=== PATIENT | female | born 1990 | race African-American/Black ===

== ENCOUNTER 2017-06-20 23:21 | Inpatient (IN) | payer OTHER ==
[~2017-06-20] VITALS: Ht 162.6 cm; Wt 140.3 kg
--- NOTE | ~2017-06-20 | HC ---
[facility] [place] [address] CONSULTATION Name: KRISSY KNOTT Room #: 359-P [facility] IN M.R.#: [id number] Admission: 06/21/17 Attend Phys: Justin Emanuel MD Discharge: Date of : 88 Report #: [id number] THIS REPORT FOR: //name// CC: Epi RICHARD physician/PCP Balta Grady DATE OF SERVICE: 06/21/2017 PULMONARY CONSULTATION DATE OF SERVICE: 06/21/2017 REFERRING PHYSICIAN: Dr. Grady. REASON FOR REFERRAL: Pulmonary embolus. HISTORY OF PRESENT ILLNESS: The patient is a 27-year-old -[place] female who presents to the Emergency Room with chest pain and abdominal pain. She was subsequently found to have pulmonary embolus. A pulmonary consultation was requested. The patient states that she was in her usual state of health until about a week ago, when she started to develop episodic chest pain. Symptoms progressively worsened earlier today when she presented to the Emergency Room. CT chest angiogram was performed. This revealed moderate bilateral pulmonary embolus, more in the left lower lung field than the right. There appears to be mild wedge-shaped infiltrates involving the left lower lobe. The patient also knows that her brother and father were diagnosed with pulmonary embolus. Otherwise, she has been relatively healthy. PAST MEDICAL HISTORY: Remarkable for mild anxiety. PAST SURGICAL HISTORY: Negative. ALLERGIES: NSAIDs which causes swelling involving the lips and also hives. HOME MEDICATIONS: Alprazolam p.r.n. FAMILY HISTORY: Father was diagnosed with pulmonary embolus, a brother with DVT following an injury. SOCIAL HISTORY: She is a lifetime nonsmoker. Denies any alcohol use. She is with 1 child. REVIEW OF SYSTEMS: As mentioned above, it is notable for morbid obesity. She stands 5 feet 4 inches tall and weighs a little over 300 pounds. Otherwise, [facility] [address] [place] [address] CONSULTATION Name: KRISSY KNOTT Room #: 359-P [facility] IN [facility]#: [id number] Admission: 06/21/17 Attend Phys: Justin Emanuel MD Discharge: Date of : 88 Report #: [id number] 10-point system review negative. PHYSICAL EXAMINATION: GENERAL: She is awake, alert, in no distress. VITAL SIGNS: Temperature maximum is 101.2 degrees Fahrenheit, pulse is 75, respiratory rate is 20, blood pressure 133/82 mmHg, saturation 97%. HEENT: Normocephalic, atraumatic. NECK: Supple, without any lymphadenopathy or thyromegaly. CHEST: Breath sounds are clear bilaterally without any rales or wheezes. CARDIOVASCULAR: Normal S1, S2. There are no murmurs or gallop. There is no JVD. There is no carotid bruit. Pulses are 2+/4+ bilaterally. ABDOMEN: Soft, nontender, no organomegaly or masses felt. GENITOURINARY AND RECTAL: Deferred. EXTREMITIES: There is no edema, cyanosis or clubbing. LABORATORY DATA: CT chest angiogram as mentioned above. hCG was negative. D-dimer was 4.2, CT abdomen and pelvis was unremarkable, venous leg Doppler ultrasound shows no evidence of DVT. Sodium 135, potassium 4.0, chloride 103, CO2 of 27, BUN is 10, creatinine 0.9. Liver function enzymes are unremarkable. Albumin is 3.2. IMPRESSION: 1. Pulmonary embolus in this 27-year-old -[place] female. CT chest angiogram shows moderate pulmonary emboli involving the left lower lobe with what appears to be pulmonary infarction. She does not have any risk factors. This is felt to be unprovoked. She has a family history of venous thromboembolic disease involving her father and a brother. Hereditary hypocoagulable state is suggested. 2. Morbid obesity. 3. Pulmonary infarction, left lower lobe. RECOMMENDATION: Agree with heparin. Would leave the patient on heparin for 1 or 2 days to assess whether there is any bleeding complication particularly her pulmonary infarction. If no bleeding complication is noted, could consider oral anticoagulant, either Coumadin. Among the direct oral anticoagulants, I would recommend Pradaxa given it has a reversal agent. In terms of duration of therapy, given this is an unprovoked event along with family history of hypocoagulable state, the patient will be a candidate for indefinite anticoagulation. Hypocoagulable panel was recommended. We also discussed the importance of dietary and exercise program to achieve an ideal body weight. [address] [address] CONSULTATION Name: KRISSY KNOTT Baljit Room #: 359-P [facility] IN M.R.#: [id number] Admission: 06/21/17 Attend Phys: Justin Emanuel MD Discharge: Date of : 88 Report #: [id number] Thank you for this consultation. <ELECTRONICALLY SIGNED> By: Favian Lucio MD 06/22/17 1920 1531 1629 Favian Lucio MD /nt
--- NOTE | ~2017-06-20 | 2DMMODE ---
[facility] [address] [place] [address] 2 D/M-MODE ECHOCARDIOGRAM Name: KRISSY KNOTT Room #: 359-P [facility] IN ..#: [id number] Admission: 06/21/17 Attend Phys: Dennis Dial Discharge: Date of : 88 Date of Service: 06/22/17 1151 Report #: [id number] THIS REPORT FOR: //name// APPROVED REPORT Study performed: 06/22/2017 09:50:29 EXAM: Comprehensive 2D, Doppler, and color-flow Echocardiogram Patient Location: Bedside Room #: 359 Status: routine BSA: 2.35 BP: 117/74 mmHg Other Information Study Quality: Good 2D Dimensions RVDd: 34.70 mm LVEF(%): 66.45 (>50%) IVSd: 12.57 (7-11mm) LVOT Diam: 21.68 (18-24mm) LVDd: 48.42 mm PWd: 13.42 (7-11mm) Ascending Ao: 28.83 (22-36mm) LVDs: 30.62 (25-40mm) Aortic Root: 28.51 mm IVC: 23.00 mm Henriquez's LVEF: 66.45 % Volumes Left Atrial Volume (Systole) Single Plane 4CH: 70.37 mL Single Plane 2CH: 47.03 mL LA ESV Index: 28.00 mL/m2 Aortic Valve AoV Peak Benjamin.: 1.79 m/s AO Peak Gr.: 12.87 mmHg LVOT Max P.61 mmHg LVOT Max V: 0.95 m/s ADOLFO Vmax: 1.95 cm2 Mitral Valve E/A Ratio: 1.8 MV Decel. Time: 236.79 ms MV E Max Benjamin.: 1.02 m/s MV A Benjamin.: 0.57 m/s MV PHT: 68.67 ms IVRT: 107.27 ms [facility] [place] [address] 2 D/M-MODE ECHOCARDIOGRAM Name: KNOTTKRISSY Room #: 359-P [facility] IN [facility]#: [id number] Admission: 06/21/17 Attend Phys: Dennis Dial Discharge: Date of : 88 Date of Service: 06/22/17 1151 Report #: [id number] Pulmonary Valve PV Peak Benjamin.: 1.26 m/s PV Peak Gr.: 6.38 mmHg Pulmonary Vein P Vein S: 0.93 m/s P Vein A: 0.24 m/s P Vein D: 0.47 m/s P Vein A Dur.: 86.5 msec P Vein S/D Ratio: 1.98 Tricuspid Valve RAP Estimate: 10.00 mmHg Left Ventricle The left ventricle is normal size. Mild concentric left ventricular hypertrophy. The left ventricular systolic function is normal. The left ventricular ejection fraction is within the normal range. LVEF is 60-65%. The left ventricular diastolic function is normal. Right Ventricle Right ventricle is at the upper limits of normal. The right ventricular systolic function is normal. Atria The left atrium size is normal. Right atrium is at the upper limits of normal. Aortic Valve The aortic valve is normal in structure. No aortic regurgitation is present. There is no aortic valvular stenosis. Mitral Valve The mitral valve is normal in structure. There is no mitral valve regurgitation noted. No evidence of mitral valve stenosis. Tricuspid Valve The tricuspid valve is normal in structure. Trace tricuspid regurgitation. Unable to assess PA pressure. Pulmonic Valve The pulmonary valve is normal in structure. Trace to mild pulmonic regurgitation. Great Vessels The aortic root is normal in size. IVC is dilated and collapses >50% with inspiration. [facility] [address] [place] [address] 2 D/M-MODE ECHOCARDIOGRAM Name: KRISSY KNOTT Room #: 359-P [facility] IN [facility]#: [id number] Admission: 06/21/17 Attend Phys: Dennis Dial Discharge: Date of : 88 Date of Service: 06/22/17 1151 Report #: [id number] Pericardium There is no pericardial effusion. <Conclusion> The left ventricle is normal size. LVEF is 60-65%. Right ventricle is at the upper limits of normal. The aortic valve is normal in structure. The mitral valve is normal in structure. The tricuspid valve is normal in structure. Trace tricuspid regurgitation. Unable to assess PA pressure. The pulmonary valve is normal in structure. Trace to mild pulmonic regurgitation. <ELECTRONICALLY SIGNED> By: Celio Uribe MD 06/22/17 1151 1151 1151 Celio Uribe MD /INF
[~2017-06-20 23:21] MED LIST: XANAX 0.25 MG0.25 MG PO
[2017-06-20 23:22] VITALS: BP 141/98
[2017-06-20 23:50] LABS: HEMATOCRIT 36.9 % (37.0-47.0); HEMOGLOBIN 11.9 gm/dL (12.0-15.0); MCH 23.2 pg (26.0-34.0); MCHC 32.3 g/dL (28.0-37.0); MCV 71.7 fL (80.0-100.0); PLATELET COUNT 207 thou/uL (150-400); RBC 5.15 mil/uL (4.20-5.00); RDW 16.4 % (10.5-14.5); WBC 6.2 thou/uL (4.0-11.0)
[2017-06-20 23:52] LABS: MANUAL DIFF YES
[2017-06-20 23:55] LABS: CALCIUM 8.7 mg/dL (8.5-10.1); CREATININE 0.9 mg/dL (0.6-1.0)
[2017-06-21 00:01] LABS: ALBUMIN 3.2 g/dL (3.4-5.0); TOTAL BILIRUBIN 0.4 mg/dL (<0.1-1.0); TOTAL PROTEIN 7.3 g/dL (6.4-8.2)
[2017-06-21 00:22] LABS: ABSOLUTE NEUTROPHILS 3.5 thou/uL (1.4-8.2); ANISOCYTOSIS 1+; ATYPICAL LYMPHS 1 %; TOTAL CELL COUNT 100
[2017-06-21 01:23] LABS: URINE BILIRUBIN NEGATIVE (Negative); URINE BLOOD TRACE (Negative); URINE COLOR YELLOW; URINE GLUCOSE-RANDOM* NEGATIVE (Negative); URINE KETONES NEGATIVE (Negative); URINE LEUKOCYTES-REFLEX NEGATIVE (Negative); URINE PROTEIN (DIPSTICK) NEGATIVE (Negative); URINE SPECIFIC GRAVITY 1.015 (1.003-1.035); URINE UROBILINOGEN 0.2 E.U./dl (0.2-1.0)
[2017-06-21 02:44] VITALS: BP 143/77
[2017-06-21 04:02] VITALS: BP 155/89
[2017-06-21 09:29] VITALS: BP 133/82
[2017-06-21 10:26] LABS: INR 1.2; PROTIME 12.7 Seconds (9.3-11.4)
[2017-06-21 10:46] LABS: APTT 76.6 Seconds (24.5-32.8)
[2017-06-21 20:00] VITALS: BP 127/71
[2017-06-22 04:00] VITALS: BP 150/82
[2017-06-22 06:22] LABS: HEMATOCRIT 33.7 % (37.0-47.0); HEMOGLOBIN 10.9 gm/dL (12.0-15.0); MCHC 32.4 g/dL (28.0-37.0); PLATELET COUNT 208 thou/uL (150-400); RBC 4.74 mil/uL (4.20-5.00); RDW 15.8 % (10.5-14.5); WBC 4.1 thou/uL (4.0-11.0)
[2017-06-22 06:32] LABS: MANUAL DIFF YES
[2017-06-22 06:41] LABS: CALCIUM 7.9 mg/dL (8.5-10.1); CREATININE 0.6 mg/dL (0.6-1.0); MAGNESIUM 1.8 mg/dL (1.8-2.4); POTASSIUM 3.6 mmol/L (3.5-5.1)
[2017-06-22 07:31] VITALS: BP 117/74
[2017-06-22 08:36] LABS: ABSOLUTE NEUTROPHILS 1.1 thou/uL (1.4-8.2); ATYPICAL LYMPHS 1 %; PLATELET ESTIMATE NORMAL; TOTAL CELL COUNT 100
[2017-06-22 08:37] LABS: ANISOCYTOSIS 1+; MICROCYTES 2+
[2017-06-22 12:00] VITALS: BP 144/79
[2017-06-22 16:00] VITALS: BP 120/63
[2017-06-22 20:10] VITALS: BP 127/76
[2017-06-23 05:30] VITALS: BP 127/71
[2017-06-23 06:33] LABS: HEMATOCRIT 33.2 % (37.0-47.0); HEMOGLOBIN 10.8 gm/dL (12.0-15.0); MCHC 32.6 g/dL (28.0-37.0); MCV 70.6 fL (80.0-100.0); PLATELET COUNT 220 thou/uL (150-400); RDW 15.8 % (10.5-14.5); WBC 4.1 thou/uL (4.0-11.0)
[2017-06-23 06:39] LABS: MANUAL DIFF YES
[2017-06-23 06:54] LABS: CALCIUM 8.4 mg/dL (8.5-10.1); CREATININE 0.7 mg/dL (0.6-1.0); MAGNESIUM 1.9 mg/dL (1.8-2.4); POTASSIUM 3.8 mmol/L (3.5-5.1)
[2017-06-23 08:30] VITALS: BP 112/55
[2017-06-23 08:30] LABS: ABSOLUTE NEUTROPHILS 0.7 thou/uL (1.4-8.2); ANISOCYTOSIS 1+; ATYPICAL LYMPHS 4 %; HYPOCHROMASIA SLIGHT; MICROCYTES 2+; PLATELET ESTIMATE NORMAL; TOTAL CELL COUNT 100
[2017-06-23 12:39] VITALS: BP 120/64
[2017-06-23 16:38] VITALS: BP 124/63
[2017-06-23 20:10] VITALS: BP 122/72
[2017-06-24 05:15] VITALS: BP 131/62
[2017-06-24] MEDS ORDERED: ENOXAPARIN150 MG/11 SUBQ (12:22)
[2017-06-24] MEDS ORDERED: PEPCID20 MG PO (12:22)
[2017-06-24] MEDS ORDERED: PRADAXA150 MG PO (12:22)
[2017-06-24 15:44] VITALS: BP 131/62
== END 2017-06-24 16:57 | disposition home or self-care (01) | DRG 175 ==
LOC: ER 23:21 → 3W 06-21 02:24 → EROBS 06-21 02:24 → 3W 06-21 03:42 → ENTRNSPT 06-24 16:46 → 3W 06-24 16:57
PROVIDERS: Emergency Medicine; Family Medicine; Internal Medicine; Nurse Practitioner Family
DX: I26.99 Other pulmonary embolism without acute cor pulmonale (principal); N17.0 Acute kidney failure with tubular necrosis; Z68.43 Body mass index [BMI] 50.0-59.9, adult; F41.9 Anxiety disorder, unspecified; E66.01 Morbid (severe) obesity due to excess calories; Z88.6 Allergy status to analgesic agent; Z84.89 Family history of other specified conditions; Z79.01 Long term (current) use of anticoagulants; Z79.899 Other long term (current) drug therapy; Z28.21 Immunization not carried out because of patient refusal
CPT/HCPCS: 10779

== ENCOUNTER 2017-08-23 18:09 | Emergency (ER) | payer OTHER ==
[~2017-08-23] VITALS: Ht 162.6 cm; Wt 140.6 kg
--- NOTE | ~2017-08-23 | EKG ---
[address] [address] ELECTROCARDIOGRAM REPORT Name: AMY KNOTTLeyla Smiley [id number] Admission: 08/23/17 Attend Phys: Discharge: 08/23/17 Date of : 88 Report #: [id number] THIS REPORT FOR: //name// [facility] ED Test Date: 2017-08-23 Test Time: 18:41:52 Pat Name: KRISSY NKOTT Department: Room: Gender: F City Councilman: SARAH : 1990 Requested By: Walter Patterson Order Number: [id number] MD: Elmer Horton Measurements Intervals [place] Rate: 80 P: 46 IA: 160 QRS: 33 QRSD: 85 T: 20 QT: 366 QTc: 423 Interpretive Statements Sinus rhythm Compared to ECG 03/27/2014 09:57:40 Sinus arrhythmia no longer present Myocardial infarct finding no longer present Electronically Signed On 08-23-2017 21:32:34 HEEL [employer] by Elmer Horton [email or web address] <ELECTRONICALLY SIGNED> By: Elmer Horton MD 08/23/172131 40 40 Elmer Horton MD /PETRONA
[~2017-08-23 18:09] MED LIST changes: +ENOXAPARIN150 MG/11 SUBQ; +PEPCID20 MG PO; +PRADAXA150 MG PO
[2017-08-23 18:58] LABS: HEMATOCRIT 38.7 % (37.0-47.0); HEMOGLOBIN 12.3 gm/dL (12.0-15.0); MCH 23.4 pg (26.0-34.0); MCHC 31.8 g/dL (28.0-37.0); MCV 73.4 fL (80.0-100.0); RBC 5.28 mil/uL (4.20-5.00); RDW 17.5 % (10.5-14.5); WBC 6.1 thou/uL (4.0-11.0)
[2017-08-23 19:05] LABS: ANION GAP 6 mmol/L (7-16); BUN 10 mg/dL (7-18); CHLORIDE 106 mmol/L (98-107); CO2 28 mmol/L (21-32); CREATININE 0.7 mg/dL (0.6-1.0); GLUCOSE 99 mg/dL (74-106); POTASSIUM 3.8 mmol/L (3.5-5.1); SODIUM 140 mmol/L (136-145)
[2017-08-23 19:14] LABS: TROPONIN-I < 0.04 ng/mL (<0.06)
== END 2017-08-23 20:47 | disposition home or self-care (01) ==
LOC: ER 18:09
PROVIDERS: Emergency Medicine
DX: R06.02 Shortness of breath (principal); R07.89 Other chest pain; Z88.8 Allergy status to other drugs, medicaments and biological substances; Z88.6 Allergy status to analgesic agent

== ENCOUNTER → 2018-04-08 | Outpatient (CLI) | payer OTHER | LOC: ULTRA 08:45 | DX: E04.1 Nontoxic single thyroid nodule (principal); Z87.891 Personal history of nicotine dependence ==